=== PATIENT | male | born 1990 | race Caucasian/White ===

== ENCOUNTER 2021-05-09 00:18 | Emergency (ER) | payer MEDICAID ==
[~2021-05-09] VITALS: Ht 175.3 cm; Wt 100.0 kg
[2021-05-09 00:50] VITALS: BP 145/87
[2021-05-09] MEDS ORDERED: dexamethasone sod phosphate 10mg/ml inj IV STA (00:55)
[2021-05-09] MEDS ORDERED: CLIN300C71 PO (01:02)
[2021-05-09] MEDS ORDERED: clindamycin 150mg capsule PO ONE (01:05)
--- NOTE | 2021-05-09 01:07 | NUR ---
DM DENIED THE BLOOD DRAW AND SIGNED TH AMA FORM WITH THE DRFatou MISHRA FOR NOTES ON MED ADMINISTRATION. DECADRON GIVEN PO AND CLINDA NOT GIVEN
== END 2021-05-09 01:09 | disposition left against medical advice (07) ==
LOC: ER 00:19
DX: J36 Peritonsillar abscess (principal)
CPT/HCPCS: 99283; J1100